=== PATIENT | male | born 1965 | race Asian ===

== ENCOUNTER 2018-07-13 11:48 | Day surgery (SDC) | payer OTHER ==
[2018-07-13] MEDS ORDERED: MIDAZOLAM 1 MG/ML 2 ML INJ ×3 (13:40)
[2018-07-13] MEDS ORDERED: FENTAnyl 50 MCG/ML VIAL (13:40)
== END 2018-07-13 15:15 | disposition home or self-care (01) ==
LOC: GIL 11:48
DX: Z12.11 Encounter for screening for malignant neoplasm of colon (principal); K64.8 Other hemorrhoids
CPT/HCPCS: 45380; 88305